=== PATIENT | female | born 1975 | race Asian ===

== ENCOUNTER 2020-12-11 17:41 | Emergency (ER) | payer BC ==
[2020-12-11] MEDS ORDERED: ASPIRIN 81 MG TAB CHEW PO ONE (18:40)
--- NOTE | 2020-12-11 18:40 | Event Note ---
ED Screening Note Date of service: 12/11/20 Time: 18:39 ED Screening Note: 45-year-old female patient with history of hypertension and family history of heart disease presents to the emergency department with complaints of chest pain radiating to her back starting last night. Patient states pain is intermittent, lasting approximately 4 minutes at a time, no identifiable exacerbating or relieving factors. No history of similar symptoms. Tachycardic in triage. General: Awake, appropriately interactive, no acute distress. Neck: Supple. Full range of motion intact. Cardiovascular: Normal peripheral perfusion. Pulmonary: No respiratory distress. Patient is speaking normally without use of accessory muscles. Skin: No apparent rashes or lesions. Neurological: No facial asymmetry. Speech is clear. Follows commands. Patient is alert and oriented. Musculoskeletal: Moves all four extremities spontaneously with normal range of motion. Psych: Cooperative. Appropriate mood and affect. EKG, labs, chest x-ray, aspirin ordered. I have greeted and performed a focused rapid initial assessment of this patient. A comprehensive ED assessment and evaluation of the patient, analysis of all test results, and completion of the medical decision-making process will be conducted by additional ED providers. This initial assessment/diagnostic orders/clinical plan/treatment(s) is/are subject to change based on patients health status, clinical progression and re-assessment. Further treatment and workup at subsequent clinical provider's discretion. Patient/guardian urged not to elope from the ED as their condition may be serious if not clinically assessed and managed.
--- NOTE | 2020-12-11 19:00 | XRay Report ---
CHEST 2 VIEWS INDICATION / CLINICAL INFORMATION: chest pain. COMPARISON: None available. FINDINGS: SUPPORT DEVICES: None. HEART / MEDIASTINUM: No significant abnormality. LUNGS / PLEURA: No significant pulmonary or pleural abnormality. No pneumothorax. ADDITIONAL FINDINGS: Bilateral breast implants IMPRESSION: 1. No acute findings. Signer Name: Tulio Bruner MD Signed: 12/11/2020 6:56 PM Workstation Name: [id number]
[2020-12-11 19:12] LABS: Basophils % (Auto) 0.9 % (0.0-1.8); Eosinophils % (Auto) 0.1 % (0.0-4.3); Hematocrit 37.3 % (30.3-42.9); Hemoglobin 12.5 gm/dl (10.1-14.3); Mean Corpuscular HGB Conc 34 % (30-34); Mean Corpuscular Volume 84 fl (79-97); Monocytes # (Auto) 0.5 K/mm3 (0.0-0.8); Monocytes % (Auto) 14.5 % (0.0-7.3); Platelet Count 247 K/mm3 (140-440); Red Blood Count 4.45 M/mm3 (3.65-5.03); Red Cell Distribution Width 14.2 % (13.2-15.2)
[2020-12-11] MEDS ORDERED: ONDANSETRON 4 MG/2 ML INJ IV ONE (19:23)
[2020-12-11] MEDS ORDERED: MORPHINE 2 MG/1 ML INJ IV ONE (19:23)
[2020-12-11 19:33] LABS: Alanine Aminotransferase 56 units/L (7-56); Albumin 4.6 g/dL (3.9-5); BUN/Creatinine Ratio 13; Blood Urea Nitrogen 13 mg/dL (7-17); Calcium 10.1 mg/dL (8.4-10.2); Hemolysis Index 14
--- NOTE | 2020-12-11 19:33 | Emergency Department Report ---
ED Chest Pain HPI - General Chief Complaint: Chest Pain Stated Complaint: CHEST PAIN Time Seen by Provider: 12/11/20 19:10 Source: patient Mode of arrival: Ambulatory Limitations: No Limitations - History of Present Illness Initial Comments: 45-year-old female, history of hypertension, presents to ED with chest pain since last night. Patient states pain is substernal, radiating to the back. She denies any nausea, vomiting, shortness of breath. She denies any cough. She reports subjective fever. Patient states she received her second Pfizer Covid vaccine on yesterday. MD Complaint: chest pain -: Last night Pain Location: substernal Pain Radiation: back Severity: moderate Consistency: intermittent Improves With: leaning foward Worsens With: supine re: denies: nausea, vomting, dyspnea Other Symptoms: fever. denies: cough - Related Data Previous Rx's Medication Instructions Recorded Last Taken Type Naproxen [Naprosyn] 500 mg PO BID #20 tablet 12/11/20 Unknown Rx traMADoL [Ultram] 50 mg PO Q6HR PRN #7 tablet 12/11/20 Unknown Rx Allergies Allergy/AdvReac Type Severity Reaction Status Date / Time No Known Allergies Allergy Verified 12/11/20 18:26 Heart Score - HEART Score History: Slightly suspicious EKG: Normal Age: 45-65 Risk factors: 1-2 risk factors Troponin: < normal limit HEART Score: 2 - EKG Read Time Time EKG Completed: 18:56 EKG Read Time: 19:00 ED Review of Systems ROS: Stated complaint: CHEST PAIN Other details as noted in HPI ED Past Medical Hx - Medications Home Medications: Home Medications Medication Instructions Recorded Confirmed Last Taken Type Naproxen [Naprosyn] 500 mg PO BID #20 tablet 12/11/20 Unknown Rx traMADoL [Ultram] 50 mg PO Q6HR PRN #7 tablet 12/11/20 Unknown Rx ED Physical Exam - General Limitations: No Limitations ED Course Vital Signs 12/11/20 12/11/20 18:23 22:21 Temperature 99.8 F H Pulse Rate 104 H 66 Respiratory 16 16 Rate Blood Pressure 134/90 118/71 [Left] O2 Sat by Pulse 99 99 Oximetry ED Medical Decision Making - Lab Data Result diagrams: 12/11/20 18:56 12/11/20 18:56 - Radiology Data Radiology results: report reviewed, image reviewed - Medical Decision Making 45-year-old female presents to ED with chest pain. Patient reports she received her second COVID-19 vaccine on yesterday. EKG is unremarkable. Troponin is negative x2. Chest x-ray is normal. D-dimer slightly elevated, so CTA chest was obtained, which is unremarkable for any acute abnormalities. No PE present, aorta appears normal, heart size appears normal. Pain meds given. Patient is feeling much better at this time. Outpatient follow-up advised, return precautions given. - Differential Diagnosis ACS, PE, aortic dissection, myocarditis Critical care attestation.: If time is entered above; I have spent that time in minutes in the direct care of this critically ill patient, excluding procedure time. ED Disposition Clinical Impression: Chest pain Disposition: 01 HOME / SELF CARE / HOMELESS Is pt being admited?: No Condition: Stable Instructions: Nonspecific Chest Pain, Adult Prescriptions: Naproxen [Naprosyn] 500 mg PO BID #20 tablet traMADoL [Ultram] 50 mg PO Q6HR PRN #7 tablet PRN Reason: Pain Referrals: [facility] [Provider Group] - 3-5 Days Time of Disposition: 22:30
[2020-12-11 19:53] LABS: INR 0.88 (0.87-1.13)
[2020-12-11 19:54] LABS: Partial Thromboplastin Time 29.2 Sec. (24.2-36.6)
--- NOTE | 2020-12-11 21:58 | Cat Scan Report ---
CTA CHEST WITH CONTRAST INDICATION / CLINICAL INFORMATION: Pt states substernal chest pain with S.O.B., nausea and vomiting. TECHNIQUE: Axial CT images were obtained through the chest after injection of 100 cc of Omnipaque 350 IV contrast. 3 plane MIP and/or 3D reconstructions were produced. All CT scans at this location are performed using CT dose reduction for ALARA by means of automated exposure control. COMPARISON: Same-day chest radiograph FINDINGS: PULMONARY ARTERIES: No central or segmental pulmonary embolus. THORACIC AORTA: No significant abnormality. HEART: No significant abnormality. ADENOPATHY: No significant adenopathy. LUNGS/PLEURA: No focal airspace consolidation. No pleural effusion. No pneumothorax. ADDITIONAL FINDINGS: None. UPPER ABDOMEN: No acute findings. SKELETAL STRUCTURES: No significant osseous abnormality. IMPRESSION: No acute findings in the chest. No evidence of pulmonary embolus. Signer Name: Ishmael Fraser MD Signed: 12/11/2020 9:53 PM Workstation Name: [id number]
[2020-12-11 22:22] VITALS: BP 118/71
--- NOTE | 2020-12-16 14:22 | Electrocardiograph Report ---
[facility] Test Date: 2020-12-11 Test Time: 18:29:40 Pat Name: LIBRA DOBSON Department: Room: Gender: F [employer] Consultant: NURSE : 1975 Requested By: ALEXANDRA LUGO Order Number: [id number] Reading MD: Gayatri Anguiano Measurements Intervals [place] Rate: 91 P: 78 [place]: 148 QRS: 57 QRSD: 66 T: 53 QT: 336 QTc: 414 Interpretive Statements Sinus rhythm Right atrial enlargement No previous ECG available for comparison Electronically Signed On 12-16-2020 14:22:00 EDT by Gayatri Anguiano
== END 2020-12-11 23:00 | disposition home or self-care (01) ==
LOC: ED 17:41
DX: R07.9 Chest pain, unspecified (principal)
CPT/HCPCS: 36415; 71046; 71275; 80053; 83690; 83735; 84484; 85025; 85379; 85610; 85730; 93005; 96374; 96375; 99284; J2270; J2405; Q9967